=== PATIENT | female | born 1950 | race Two or more races ===

== ENCOUNTER 2020-08-22 15:14 | Emergency (ER) | payer MEDICARE, MEDICAID ==
[~2020-08-22] VITALS: Ht 152.4 cm; Wt 72.6 kg
[2020-08-22 16:40] VITALS: BP 135/71
[2020-08-22] MEDS ORDERED: traMADol HCL 50 MG TAB PO ONE (18:30)
== END 2020-08-22 18:53 | disposition home or self-care (01) ==
LOC: ER 15:14
DX: S90.121A Contusion of right lesser toe(s) without damage to nail, initial encounter (principal); S90.424A Blister (nonthermal), right lesser toe(s), initial encounter; X58.XXXA Exposure to other specified factors, initial encounter; Y93.89 Activity, other specified; Y92.89 Other specified places as the place of occurrence of the external cause; Y99.8 Other external cause status
CPT/HCPCS: 93925